=== PATIENT | male | born 1995 | race Caucasian/White ===

== ENCOUNTER 2018-03-11 19:42 | Emergency (ER) | payer SELFPAY ==
[~2018-03-11] VITALS: Ht 185.4 cm; Wt 65.0 kg
[2018-03-11 19:45] VITALS: BP 128/86
[2018-03-11] MEDS ORDERED: ACETAMINOPHEN 325 MG TABLET ONE (20:08)
[2018-03-11] MEDS ORDERED: IBUPROFEN 200 MG TABLET ONE (20:08)
[2018-03-11] MEDS ORDERED: IBUPROFEN 200 MG TABLET PO ONE (20:30)
[2018-03-11] MEDS ORDERED: ACETAMINOPHEN 325 MG TABLET PO ONE (20:30)
== END 2018-03-11 20:38 | disposition left against medical advice (07) ==
LOC: ED 20:32
DX: L04.0 Acute lymphadenitis of face, head and neck (principal); B34.9 Viral infection, unspecified; H92.09 Otalgia, unspecified ear
CPT/HCPCS: 99283